=== PATIENT | female | born 1970 | race Caucasian/White ===

== ENCOUNTER 2018-07-20 19:30 | Emergency (ER) | payer OTHER ==
[~2018-07-20] VITALS: Wt 85.3 kg
[2018-07-21] MEDS ORDERED: KETOROLAC 30 MG INJ IM STA (00:18)
[2018-07-21] MEDS ORDERED: TRAM50TA2 PO (00:54)
--- NOTE | 2018-07-21 01:13 | ERD ---
ER Documentation Chief Complaint Chief Complaint NECK/BACK PAIN [id number] WORSE TODAY/SORE THROAT [id number] HPI 48-year-old female past medical history of hypothyroidism newly diagnosed who presents with 1 month complaint of neck pain. Pain is bilateral to the anterior cervical area. She denies fevers, chills, dysphagia, voice hoarseness, hemoptysis, recent illness, URI type symptoms. Has tried aspirin for her pain. She reports no family history of cancer. She denies any B symptoms. Patient reports eating and drinking without issue. She was seen in clinic June 24 of this year and treated for throat infection with Keflex. She states she had an ultrasound of the thyroid which noted 2 small nodules. She has not yet followed up with her doctor regarding these findings. She otherwise reports good health and is without any further complaints. ROS All systems reviewed and are negative except as per history of present illness. Medications Home Meds Active Scripts Tramadol HCl (Tramadol HCl) 50 Mg Tablet, 50 MG PO Q6 PRN for PAIN, #20 TAB Prov:DARA SHAY PA-C 07/21/18 Allergies Allergies: Coded Allergies: No Known Allergy (Unverified , 07/21/18) PMhx/Soc Medical and Surgical Hx: pt denies Surgical Hx Hx Miscellaneous Medical Probl: Yes (THYROID) Hx Alcohol Use: No Hx Substance Use: No Hx Tobacco Use: Yes Smoking Status: Current every day smoker FmHx Family History: No diabetes, No coronary disease, No other Physical Exam Vitals Vital Signs Date Temp Pulse Resp B/P (MAP) Pulse Ox O2 O2 Flow FiO2 Time Delivery Rate 07/20/18 98.4 67 20 152/72 99 19:45 (98) Physical Exam I have reviewed the triage vital signs. Const: Well nourished, well developed, appears stated age Eyes: PERRL, no conjunctival injection HENT: NCAT, Neck supple without meningismus, no palpable nodules, no erythema or swelling, tenderness to palpation, full ROM to neck, no anterior cervical lymph adenopathy, no clavicular lymphadenopathy CV: RRR, Warm, well-perfused extremities RESP: CTAB, Unlabored respiratory effort GI: soft, non-tender, non-distended, no masses MSK: No gross deformities appreciated Skin: Warm, dry. No rashes Neuro: Alert, grossly non focal Psych: Appropriate mood and affect. Results 24 hrs Current Medications Medications Dose Sig/Ricardo Start Time Status Last (Trade) Ordered Route PRN Stop Time Admin Dose Reason Admin Ketorolac 30 mg ONCE STAT 07/21/18 DC 07/21/18 Tromethamine IM 00:18 00:30 (Toradol) 07/21/18 00:19 Procedures/MDM 48-year-old female presenting with complaint of neck pain for 1 month. Patient hemodynamically stable with no airway complaints. She has newly diagnosed hypothyroidism and is currently on treatment. Had a recent thyroid neck ultrasound which patient states showed 2 small nodules. Given her stable hemodynamics I explained to patient that there is no emergent issue warranting further ED evaluation. Her exam is reassuring. She has no red flag symptoms such as dysphagia, hoarseness, hemoptysis. She appears to follow closely with her PMD. I have advised patient to follow-up closely with PMD for further management and evaluation. Plan: Pain control, PMD follow-up Strict return precautions explained to patient. Departure Diagnosis: Primary Impression: Neck pain Condition: Stable Patient Instructions: Neck Pain, No Trauma Referrals: [facility] YOU HAVE RECEIVED A MEDICAL SCREENING EXAM AND THE RESULTS INDICATE THAT YOU DO NOT HAVE A CONDITION THAT REQUIRES URGENT TREATMENT IN THE EMERGENCY DEPARTMENT. FURTHER EVALUATION AND TREATMENT OF YOUR CONDITION CAN WAIT UNTIL YOU ARE SEEN IN YOUR DOCTORS OFFICE WITHIN THE NEXT 1-2 DAYS. IT IS YOUR RESPONSIBILITY TO MAKE AN APPOINTMENT FOR FOLOW-UP CARE. IF YOU HAVE A PRIMARY DOCTOR --you should call your primary doctor and schedule and appointment IF YOU DO NOT HAVE A PRIMARY DOCTOR YOU CAN CALL OUR PHYSICIAN REFERRAL HOTLINE AT . IF YOU CAN NOT AFFORD TO SEE A PHYSICIAN YOU CAN CHOSE FROM THE FOLLOWING [facility] INSTITUTIONS: [facility] [id number] [place] [address] [facility] [address] [place] [address] [facility] [address] [place] [address] Additional Instructions: Call your primary care doctor TOMORROW for an appointment during the next 2-3 days.See the doctor sooner or return here if your condition worsens before your appointment time. DARA SHAY PA-C Jul 21, 2018 01:13
[2018-07-21 01:24] VITALS: BP 135/78; PULSE 54; RESP 18
== END 2018-07-21 01:25 | disposition home or self-care (01) ==
LOC: FTE 19:30
DX: M54.2 Cervicalgia (principal); E03.9 Hypothyroidism, unspecified; F17.210 Nicotine dependence, cigarettes, uncomplicated
CPT/HCPCS: 96372; 99284; J1885